=== PATIENT | male | born 1975 | race Caucasian/White ===

== ENCOUNTER 2017-06-15 22:43 | Inpatient (IN) | payer SELFPAY ==
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
[2017-06-15] MEDS ORDERED: NS 1,000 ML IV ONE (23:10)
[2017-06-15] MEDS ORDERED: ONDANSETRON 4 MG/2 ML VIAL IVP ONE (23:10)
[2017-06-15 23:18] LABS: % IMMATURE GRANULYOCYTES 0.8 % (0.0-1.1); ABSOLUTE IMMATURE GRANULOCYTES 0.18 10^3/uL (0.00-0.10); ADD DIFF? NO; ADD MORPH? NO; ADD SCAN? NO; ATYPICAL LYMPHOCYTE FLAG 0 (0-99); FRAGMENT RBC FLAG 0 (0-99); HEMATOCRIT 43.9 % (40.0-51.0); HEMOGLOBIN 15.1 g/dL (13.7-17.5); LEFT SHIFT FLG 10 (0-99); LIPEMIA HEMOLYSIS FLAG 90 (0-99); MEAN CELL HEMOGLOBIN 29.9 pg (27.9-34.1); MEAN CELL HEMOGLOBIN CONCENTR. 34.4 g/dL (32.4-36.7); MEAN CELL VOLUME 86.9 fL (81.5-99.8); MEAN PLATELET VOLUME 9.1 fL (8.7-11.7); PLATELET CLUMPS FLAG 10 (0-99); PLATELET COUNT 325 10^3/uL (150-400); RED BLOOD CELL COUNT 5.05 10^6/uL (4.40-6.38); RED CELL DISTRIBUTION WIDTH 13.3 % (11.5-15.2)
[2017-06-15] MEDS ORDERED: MIDAZOLAM 2 MG/2 ML VIAL IVP ONE (23:18)
[2017-06-15] MEDS ORDERED: MIDAZOLAM 2 MG/2 ML VIAL ONE (23:20)
[2017-06-15 23:27] LABS: APTT 25.4 SEC (23.0-38.0); INR 1.1 (0.83-1.16); PROTIME(PATIENT) 14.1 SEC (12.0-15.0)
[2017-06-15 23:36] LABS: ANION GAP 10 mEq/L (8-16); CALCIUM 9.5 mg/dL (8.5-10.4); CARBON DIOXIDE 23 mEq/l (22-31); CHLORIDE 105 mEq/L (97-110); CREATININE 1.1 mg/dL (0.7-1.3); ETHANOL SERUM < 10 mg/dL (0-10); GLOMERULAR FILTRATION RATE > 60; GLUCOSE 89 mg/dL (70-100); POTASSIUM 3.7 mEq/L (3.5-5.2); SODIUM 138 mEq/L (134-144)
[2017-06-15] MEDS ORDERED: IOPAMIDOL (ISOVUE-300) 100 ML BTL ONE (23:42)
[2017-06-15] MEDS ORDERED: PROPOFOL/EMULSION 1,000 MG/100 ML BOTTLE IV ONE (23:57)
[2017-06-15] MEDS ORDERED: ETOMIDATE 40 MG/20 ML INJ IVP ONE (23:57)
[2017-06-15] MEDS ORDERED: SUCCINYLCHOLINE CHLORIDE 200 MG/10 ML VIAL IVP ONE (23:58)
[2017-06-16] MEDS: PROPOFOL/EMULSION 100 ML IV SCH ×4 (00:07→08:52)
[2017-06-16] MEDS ORDERED: ceFAZolin 2 GM in NS 100 ML IV ONE (00:08)
[2017-06-16] MEDS ORDERED: fentaNYL 100 MCG/2 ML INJ IVP ONE (00:09)
[2017-06-16] MEDS ORDERED: PROPOFOL 200 MG/20 ML VIAL IVP ONE ×2 (00:09→00:15)
[2017-06-16] MEDS ORDERED: ceFAZolin 2 GM/DEXTROSE 100 ML IV ONE (00:30)
[2017-06-16] MEDS ORDERED: VECURONIUM BROMIDE 10 MG VIAL IV ONE (00:30)
[2017-06-16 00:33] LABS: BASE EXCESS -5.4 mEq/L (-2.5-2.5); BICARBONATE 21 mEq/L (22-26); MEASURED OXYGEN SATURATION 92 % (92-95); PCO2 46 mmHg (34-38); PO2 78 mmHg (65-75); TCO2 22 mEq/L (23-27)
[2017-06-16 00:36] LABS: O2 CONCENTRATIION 40 % (0-100); P/F RATIO 195 RATIO; TOTAL RATE 12
[2017-06-16] MEDS ORDERED: VECURONIUM BROMIDE 10 MG VIAL ONE (00:50)
[2017-06-16] MEDS ORDERED: ETOMIDATE 40 MG/20 ML INJ ONE (00:50)
[2017-06-16] MEDS ORDERED: SUCCINYLCHOLINE CHLORIDE*ANESTHESIA ONLY*200 MG/10 ML SYR IVP ONE (00:50)
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
[2017-06-16] MEDS ORDERED: D5W 1/2 NS W/ 20 KCl/L 1,000 ML IV SCH (01:30)
[2017-06-16] MEDS ORDERED: ONDANSETRON 4 MG/2 ML VIAL IVP PRN ×3 (01:30→01:31)
[2017-06-16] MEDS ORDERED: NALOXONE HCL 0.4 MG/ML INJ IVP PRN (01:31)
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
[2017-06-16] MEDS: fentaNYL/NACL 100 ML IV SCH ×2 (02:00→12:49)
[2017-06-16 06:51] LABS: ANION GAP 8 mEq/L (8-16); CALCIUM 8.8 mg/dL (8.5-10.4); CARBON DIOXIDE 25 mEq/l (22-31); CHLORIDE 106 mEq/L (97-110); CREATININE 1.1 mg/dL (0.7-1.3); GLOMERULAR FILTRATION RATE > 60; GLUCOSE 90 mg/dL (70-100); POTASSIUM 4.3 mEq/L (3.5-5.2); SODIUM 139 mEq/L (134-144)
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
[2017-06-16] MEDS: FAMOTIDINE 20 MG/NACL 50 ML IV SCH ×2 (08:53→20:20)
[2017-06-16] MEDS: levETIRAcetam 500 MG in NS 100 ML IV SCH ×2 (08:53→20:19)
[2017-06-16] MEDS: ERTAPENEM 1 GM in NS 100 ML IV SCH (09:24)
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
[2017-06-16] MEDS: D5W 1/2 NS W/ 20 KCl/L 1,000 ML IV SCH (22:48)
[2017-06-17 02:41] LABS: ANION GAP 9 mEq/L (8-16); CALCIUM 8.8 mg/dL (8.5-10.4); CARBON DIOXIDE 25 mEq/l (22-31); CHLORIDE 106 mEq/L (97-110); CREATININE 0.8 mg/dL (0.7-1.3); GLOMERULAR FILTRATION RATE > 60; GLUCOSE 107 mg/dL (70-100); POTASSIUM 4.1 mEq/L (3.5-5.2); SODIUM 140 mEq/L (134-144)
[2017-06-17] MEDS: fentaNYL/NACL 100 ML IV SCH (03:09)
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
[2017-06-17] MEDS ORDERED: IOPAMIDOL (ISOVUE 370) 100 ML BTL IV ONE (08:42)
[2017-06-17] MEDS: FAMOTIDINE 20 MG/NACL 50 ML IV SCH ×2 (10:05→21:03)
[2017-06-17] MEDS: levETIRAcetam 500 MG in NS 100 ML IV SCH ×2 (10:06→21:03)
[2017-06-17] MEDS: ERTAPENEM 1 GM in NS 100 ML IV SCH (10:06)
[2017-06-17] MEDS: HYDROmorphONE/DILAUDID 1 MG/ML SYR IVP PRN ×2 (12:53→17:18)
[2017-06-17] MEDS: D5W 1/2 NS W/ 20 KCl/L 1,000 ML IV SCH (12:54)
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
[2017-06-17] MEDS ORDERED: IPRATROPIUM/ALBUTEROL 3 ML DEYVIAL IH PRN (16:10)
[2017-06-18] MEDS: D5W 1/2 NS W/ 20 KCl/L 1,000 ML IV SCH ×2 (02:23→17:49)
[2017-06-18] MEDS: LORazepam 2 MG/ML INJ IVP PRN (04:30)
[2017-06-18] MEDS: levETIRAcetam 500 MG in NS 100 ML IV SCH (08:43)
[2017-06-18] MEDS: ERTAPENEM 1 GM in NS 100 ML IV SCH (08:43)
[2017-06-18] MEDS: FAMOTIDINE 20 MG/NACL 50 ML IV SCH (08:43)
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
[2017-06-18] MEDS: oxyCODONE IR 5 MG TAB PO PRN ×2 (14:54→20:11)
[2017-06-18] MEDS: ACETAMINOPHEN 325 MG TAB PO PRN (14:55)
[2017-06-18] MEDS: levETIRAcetam 500 MG TAB PO SCH (21:30)
[2017-06-18] MEDS: FAMOTIDINE 20 MG TAB PO SCH (21:30)
[2017-06-19] MEDS: oxyCODONE IR 5 MG TAB PO PRN ×5 (00:44→20:30)
[2017-06-19] MEDS: HYDROmorphONE/DILAUDID 1 MG/ML SYR IVP PRN (03:49)
[2017-06-19 05:24] LABS: % IMMATURE GRANULYOCYTES 0.4 % (0.0-1.1); ABSOLUTE IMMATURE GRANULOCYTES 0.05 10^3/uL (0.00-0.10); ADD DIFF? NO; ADD MORPH? NO; ADD SCAN? NO; ATYPICAL LYMPHOCYTE FLAG 10 (0-99); FRAGMENT RBC FLAG 0 (0-99); HEMATOCRIT 38.2 % (40.0-51.0); HEMOGLOBIN 13.6 g/dL (13.7-17.5); LEFT SHIFT FLG 0 (0-99); LIPEMIA HEMOLYSIS FLAG 90 (0-99); MEAN CELL HEMOGLOBIN 30.2 pg (27.9-34.1); MEAN CELL HEMOGLOBIN CONCENTR. 35.6 g/dL (32.4-36.7); MEAN CELL VOLUME 84.7 fL (81.5-99.8); PLATELET CLUMPS FLAG 10 (0-99); PLATELET COUNT 280 10^3/uL (150-400); RED BLOOD CELL COUNT 4.51 10^6/uL (4.40-6.38); RED CELL DISTRIBUTION WIDTH 12.5 % (11.5-15.2)
[2017-06-19] MEDS: ACETAMINOPHEN 325 MG TAB PO PRN ×2 (07:42→18:57)
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
[2017-06-19] MEDS: levETIRAcetam 500 MG TAB PO SCH ×2 (08:11→20:30)
[2017-06-19] MEDS: FAMOTIDINE 20 MG TAB PO SCH ×2 (08:11→20:30)
[2017-06-19] MEDS: ERTAPENEM 1 GM in NS 100 ML IV SCH (08:11)
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
[2017-06-19] MEDS: LORazepam 2 MG/ML INJ IVP PRN (20:30)
[2017-06-20] MEDS: oxyCODONE IR 5 MG TAB PO PRN ×4 (01:02→18:52)
[2017-06-20] MEDS: HYDROmorphONE/DILAUDID 1 MG/ML SYR IVP PRN ×2 (01:02→22:32)
[2017-06-20] MEDS: ACETAMINOPHEN 325 MG TAB PO PRN ×3 (04:13→20:06)
[2017-06-20] MEDS: LORazepam 2 MG/ML INJ IVP PRN ×2 (04:14→22:32)
[2017-06-20] MEDS: ERTAPENEM 1 GM in NS 100 ML IV SCH (08:42)
[2017-06-20] MEDS: levETIRAcetam 500 MG TAB PO SCH ×2 (08:43→20:06)
[2017-06-20] MEDS: FAMOTIDINE 20 MG TAB PO SCH ×2 (08:43→20:06)
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
[2017-06-21] MEDS: ACETAMINOPHEN 325 MG TAB PO PRN ×3 (02:47→20:50)
[2017-06-21] MEDS: oxyCODONE IR 5 MG TAB PO PRN ×5 (02:47→20:51)
[2017-06-21] MEDS: HYDROmorphONE/DILAUDID 1 MG/ML SYR IVP PRN (05:46)
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
[2017-06-21] MEDS: AMOXICILLIN/CLAVULANATE POT 875/125 MG TAB PO SCH ×2 (09:05→20:51)
[2017-06-21] MEDS: FAMOTIDINE 20 MG TAB PO SCH ×2 (09:06→20:51)
[2017-06-21] MEDS: levETIRAcetam 500 MG TAB PO SCH ×2 (09:07→20:51)
[2017-06-21] MEDS: MULTIVITAMINS 1 EACH TAB PO SCH (09:07)
[2017-06-21] MEDS: LORazepam 2 MG/ML INJ IVP PRN (22:51)
[2017-06-22] MEDS: oxyCODONE IR 5 MG TAB PO PRN ×5 (01:58→20:35)
[2017-06-22] MEDS: ACETAMINOPHEN 325 MG TAB PO PRN ×3 (01:59→12:37)
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
[2017-06-22] MEDS: FAMOTIDINE 20 MG TAB PO SCH ×2 (08:32→20:35)
[2017-06-22] MEDS: AMOXICILLIN/CLAVULANATE POT 875/125 MG TAB PO SCH ×2 (08:32→20:34)
[2017-06-22] MEDS: levETIRAcetam 500 MG TAB PO SCH ×2 (08:32→20:34)
[2017-06-22] MEDS: MULTIVITAMINS 1 EACH TAB PO SCH (08:32)
[2017-06-22] MEDS: LORazepam 2 MG/ML INJ IVP PRN (20:36)
[2017-06-23] MEDS: ACETAMINOPHEN 325 MG TAB PO PRN ×3 (02:03→21:41)
[2017-06-23] MEDS: LORazepam 2 MG/ML INJ IVP PRN ×2 (02:04→08:49)
[2017-06-23] MEDS: oxyCODONE IR 5 MG TAB PO PRN (02:11)
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
[2017-06-23] MEDS: FAMOTIDINE 20 MG TAB PO SCH ×2 (08:21→21:41)
[2017-06-23] MEDS: levETIRAcetam 500 MG TAB PO SCH ×2 (08:21→21:41)
[2017-06-23] MEDS: MULTIVITAMINS 1 EACH TAB PO SCH (08:22)
[2017-06-23] MEDS ORDERED: LORazepam 1 MG TAB PO ONE (15:45)
[2017-06-23 23:13] VITALS: RESP 18
[2017-06-24] MEDS: ACETAMINOPHEN 325 MG TAB PO PRN (03:50)
[2017-06-24 03:54] VITALS: BP 109/81; PULSE 109; TEMP 98.9; O2SAT 95
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
--- NOTE | 2017-06-24 09:28 | ASMTCMCOM ---
CM Note CM Note Notes: Spoke with patient who states he does not want to discuss D/C plan until tomorrow. Patient states h e does not have access to any of his financial information. Patient's nurse reports he agreed to go for CT scan 3 times and then when they came to the room he refused to go until he was given pain medication. Dr. Canales has d/c'ed patient from all narcotics.It is difficult to know if patient's a gitation is related to drug withdrawal or due to TBI or both. Raheem, trauma RN states Reba is contacting legal. We clearly need a ruling regardin g patient's decisional capacity. Spoke with financial resources and patient is not a resident and is not moving here so he does not qualify for Medicaid or emergency Medicaid. Julia also said we cannot qualify patient for We Care unless patient provides financial data.It has been determined patient's legal name is Harini Power.Patient has also been refusing to work with therapies including physical therapy and speech. Consultation alecia carey with Faith Livingston regarding d/c options at this point. CM will follow. Date Signed: 06/23/2017 05:00 PM Electronically Signed By:Leslie Moreno
--- NOTE | 2017-06-24 10:28 | ASDISCHSUM ---
Discharge Information Plan Status: Medically Cleared to Leave: Discharge Date:06/24/2017 08:14 AM CM D/C Disposition:Against Medical Advice ADT D/C Disposition:Against Medical Advice Projected Discharge Date:06/25/2017 11:00 AM Transportation at D/C:Self Discharge Delay Reason: Follow-Up Date:06/25/2017 11:00 AM Discharge Slot: Final Diagnosis: Placement Information Referral Type:Rehabilitation [facility] Referral ID:[id number] Provider Name: Address 1: Phone Number: Address 2: Fax Number: City: Selection Factors: State: Patient Contact Information Contact Name:KELSEY Relationship:Other Address: Work Phone: City: [facility] Phone: [facility] Code: Email: Financial Information Financial Class:Self-Pay Primary Plan Desc:SELF PAY Primary Plan Number: Secondary Plan Desc: Secondary Plan Number: Assessment Information [facility] CM Progress Note CM Note CM Note Notes: Spoke with patient who states he does not want to discuss D/C plan until tomorrow. Patient states he does not have access to any of his financial information. Patient's nurse reports he agreed to go for CT scan 3 times and then when they came to the room he refused to go until he was given pain medication. Dr. Canales has d/c'ed patient from all narcotics.It is difficult to know if patient's agitation is related to drug withdrawal or due to TBI or both. Raheem trauma RN states Reba is contacting legal. We clearly need a ruling regarding patient's decisional capacity. Spoke with financial resources and patient is not a resident and is not moving here so he does not qualify for Medicaid or emergency Medicaid. Julia also said we cannot qualify patient for We Care unless patient provides financial data.It has been determined patient's legal name is Harini Power.Patient has also been refusing to work with therapies including physical therapy and speech. Consultation planned with Faith Livingston regarding d/c options at this point. CM will follow. Date Signed: 06/23/2017 05:00 PM Electronically Signed By:Leslie Moreno Intervention Information
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
== END 2017-06-24 08:14 | disposition left against medical advice (07) | DRG 82 ==
LOC: EEVIPCON 06-16 00:10 → F2N 06-16 01:26 → F3N 06-19 09:26
PROVIDERS: ADMIT Surgery; ATTEND Neurological Surgery
DX: S06.5X9A Traumatic subdural hemorrhage with loss of consciousness of unspecified duration, initial encounter (principal); S06.6X9A Traumatic subarachnoid hemorrhage with loss of consciousness of unspecified duration, initial encounter; S01.01XA Laceration without foreign body of scalp, initial encounter; S01.81XA Laceration without foreign body of other part of head, initial encounter; J96.01 Acute respiratory failure with hypoxia; J69.0 Pneumonitis due to inhalation of food and vomit; S02.0XXA Fracture of vault of skull, initial encounter for closed fracture; S02.19XA Other fracture of base of skull, initial encounter for closed fracture; V86.59XA Driver of other special all-terrain or other off-road motor vehicle injured in nontraffic accident, initial encounter; Y92.89 Other specified places as the place of occurrence of the external cause; B96.3 Hemophilus influenzae [H. influenzae] as the cause of diseases classified elsewhere; R40.2412 Glasgow coma scale score 13-15, at arrival to emergency department; F15.10 Other stimulant abuse, uncomplicated; F14.10 Cocaine abuse, uncomplicated; F12.10 Cannabis abuse, uncomplicated; F10.10 Alcohol abuse, uncomplicated; Z59.0 Homelessness
CPT/HCPCS: 80305; 82947-QW; 92523-GN; 92610-GN; 96365; 97116-GP; 97162-GP; 97166-GO; 97530-GP; 97535-GO; G0480; J0330; J0690; J1170; J1335; J1953; J2060; J2250; J2704; J3010; Q9967

== ENCOUNTER 2017-06-24 09:25 | Emergency (ER) | payer SELFPAY ==
[2017-06-24 09:32] VITALS: BP 138/123; PULSE 78; RESP 18; TEMP 98.1; O2SAT 95
[2017-06-24] MEDS ORDERED: ACETAMINOPHEN 500 MG TAB PO ONE (10:11)
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
== END 2017-06-24 12:20 | disposition home or self-care (01) ==
LOC: UNDODISIN 11:00 → UNDOADMIN 11:00
DX: S06.9X0D Unspecified intracranial injury without loss of consciousness, subsequent encounter (principal); V86.99XD Unspecified occupant of other special all-terrain or other off-road motor vehicle injured in nontraffic accident, subsequent encounter